=== PATIENT | male | born 1975 | race Caucasian/White ===

== ENCOUNTER 2016-09-28 17:07 | Emergency (ER) | payer SELFPAY ==
[~2016-09-28] VITALS: Ht 185.4 cm; Wt 90.7 kg
[~2016-09-28 17:07] MED LIST: AMOXICILLIN500 M2 PO; AMOXICILLIN500 MG PO; AMOXIL500 MG PO; ANAPROX DS550 MG PO; ATARAX,VISTARIL50 MG PO; CARBIDOPA/LEVOD1 TA1 PO; CLEOCIN HCL150 MG PO; CLEOCIN150 MG PO; CLINDAMYCIN HC300 MG PO; FIORICET 325 MG1 TAB PO; FLAGYL500 MG PO; FLEXERIL10 MG PO; FLEXERIL5 MG PO; HYDROCODONE BIT1 T11 PO; MEDROL DOSEPAK4 MG PO; Motrin,Rufen800 MG PO; NKHM; NORCO 10-325 T1 EACH PO; PEN-VEE K500 MG PO; PENICILLIN VK500 MG PO; PEPCID20 MG PO; PHENERGAN W/DM120 ML PO; PRILOSEC20 MG PO; Peridex 473 ML473 ML PO; TRAMADOL HCL50 MG PO; TRAMADOL HYDROC50 MG PO; TRAZODONE50 MG PO; ULTRAM50 MG PO; VICODIN 5/500 505 MG PO; VICODIN ES 7501 TAB PO; VISTARIL25 M1 PO; ZOFRAN 4 MG ED2 TAB PO; Zofran4 MG PO
[2016-09-28] MEDS ORDERED: AMOXICILLIN500 M2 PO (17:47)
[2016-09-28] MEDS ORDERED: NAPROSYN500 MG PO (17:47)
== END 2016-09-28 17:56 | disposition home or self-care (01) ==
LOC: ED 17:07
DX: K04.7 Periapical abscess without sinus (principal); F17.200 Nicotine dependence, unspecified, uncomplicated

== ENCOUNTER 2017-02-24 15:26 | Emergency (ER) | payer OTHER ==
[~2017-02-24] VITALS: Ht 182.8 cm; Wt 79.4 kg
[~2017-02-24 15:26] MED LIST changes: +NAPROSYN500 MG PO
[2017-02-24 16:41] LABS: BASO # 0.1 10*3/uL (0.0-0.1); BASO % 0.8 % (0.0-1.0); EOS # 0.1 10*3/uL (0.0-0.4); HEMATOCRIT 40.8 % (42.0-52.0); HEMOGLOBIN 14.1 g/dl (14.0-18.0); LYMPH # 2.4 10*3/uL (1.3-4.4); LYMPH % 38.5 % (27.0-41.0); MEAN CELL VOLUME 89.3 fl (80.0-94.0); MEAN CORPUSCULAR HGB 30.9 pg (27.0-31.0); MEAN CORPUSCULAR HGB CONC 34.6 g/dl (33.0-37.0); MEAN PLATELET VOLUME 9.1 fl (9.6-12.3); MONO # 0.8 10*3/uL (0.1-1.0); MONO % 13.7 % (3.0-9.0); NEUT # 2.7 10*3/uL (2.3-7.9); NEUT % 44.8 % (47.0-73.0); PLATELET COUNT AUTOMATED 208 10*3/uL (130-400); RED BLOOD COUNT 4.57 10*6/uL (4.50-5.90); RED CELL DISTRI WIDTH 13.6 % (0-14.5); WHITE BLOOD COUNT 6.1 10*3/uL (4.8-10.8)
[2017-02-24 16:59] LABS: ALBUMIN 3.9 gm/dl (3.1-4.5); ALKALINE PHOSPHATASE 87 U/L (45-117); BILIRUBIN, TOTAL 0.9 mg/dl (0.2-1.0); BUN 14 mg/dl (7-24); C-REACTIVE PROTEIN < 0.29 MG/DL (0-0.3); CARBON DIOXIDE 26 mmol/L (21-32); CHLORIDE 108 mmol/L (98-107); CPK 106 U/L (39-308); EST GLOM FILT AFRICAN AMERICAN > 60 ml/min; GLUCOSE 91 mg/dL (65-99); MAGNESIUM 2.6 mg/dL (1.5-2.1); POTASSIUM 3.6 mmol/L (3.5-5.1); SGOT/AST 32 IU/L (3-35); SGPT/ALT 66 U/L (12-78); SODIUM 138 mmol/L (136-145); TOTAL PROTEIN 7.3 gm/dL (6.4-8.2); TROPONIN I < 0.015 ng/ml (<0.045)
== END 2017-02-24 19:14 | disposition left against medical advice (07) ==
LOC: ED 15:26
PROVIDERS: Emergency Medicine
DX: R07.9 Chest pain, unspecified (principal); R55 Syncope and collapse; I25.10 Atherosclerotic heart disease of native coronary artery without angina pectoris; I25.2 Old myocardial infarction; F11.10 Opioid abuse, uncomplicated; F12.10 Cannabis abuse, uncomplicated; F17.210 Nicotine dependence, cigarettes, uncomplicated; Z90.49 Acquired absence of other specified parts of digestive tract

== ENCOUNTER 2017-05-03 12:26 | Inpatient (IN) | payer OTHER ==
[~2017-05-03] VITALS: Ht 182.9 cm; Wt 80.9 kg
[2017-05-03 12:44] VITALS: BP 111/75
[2017-05-03 13:11] LABS: URINE AMPHETAMINES < 1000 (1000ng/ml); URINE BARBITURATES < 200 (200ng/ml); URINE BENZODIAZEPINES < 200 (200ng/ml); URINE CANNABINOIDS (THC) > 50 (50ng/ml); URINE COCAINE < 300 (300ng/ml); URINE METHADONE < 300 (300ng/ml); URINE OPIATES < 300 (300ng/ml)
[2017-05-03 13:13] LABS: URINE PHENCYCLIDINE < 25 (25ng/ml)
[2017-05-03 13:15] LABS: BASO # 0.1 10*3/uL (0.0-0.1); EOS # 0.2 10*3/uL (0.0-0.4); EOS % 3.7 % (1.0-4.0); HEMATOCRIT 40.9 % (42.0-52.0); LYMPH # 1.8 10*3/uL (1.3-4.4); LYMPH % 29.8 % (27.0-41.0); MEAN CELL VOLUME 93.8 fl (80.0-94.0); MEAN CORPUSCULAR HGB 32.1 pg (27.0-31.0); MEAN CORPUSCULAR HGB CONC 34.2 g/dl (33.0-37.0); MEAN PLATELET VOLUME 8.7 fl (9.6-12.3); MONO # 0.7 10*3/uL (0.1-1.0); MONO % 10.9 % (3.0-9.0); NEUT # 3.3 10*3/uL (2.3-7.9); NEUT % 54.4 % (47.0-73.0); PLATELET COUNT AUTOMATED 203 10*3/uL (130-400); RED BLOOD COUNT 4.36 10*6/uL (4.50-5.90); RED CELL DISTRI WIDTH 13.6 % (0-14.5)
[2017-05-03 13:33] LABS: ALBUMIN 3.8 gm/dl (3.1-4.5); ALKALINE PHOSPHATASE 100 U/L (45-117); BUN 10 mg/dl (7-24); CHLORIDE 103 mmol/L (98-107); CREATININE 0.88 mg/dL (0.70-1.30); ETHYL ALCOHOL < 3.0 mg/dl (<3); SGOT/AST 24 IU/L (3-35); SGPT/ALT 35 U/L (12-78); SODIUM 136 mmol/L (136-145); TOTAL PROTEIN 7.2 gm/dL (6.4-8.2)
[2017-05-03 13:54] LABS: BILIRUBIN NEGATIVE (NEGATIVE); BLOOD NEGATIVE (NEGATIVE); CLARITY SL CLOUDY (CLEAR); COLOR YELLOW (YELLOW); GLUCOSE NEGATIVE (NEGATIVE); KETONE NEGATIVE (NEGATIVE); LEUKO ESTERASE NEGATIVE (NEGATIVE); NITRITE NEGATIVE (NEGATIVE); PH 8.5 (5.0-9.0); SPECIFIC GRAVITY 1.015 (1.005-1.030); UROBILINOGEN 0.2 E.U./dl (0.2-1.0)
[2017-05-03 14:04] LABS: BACTERIA 2+; EPITHELIAL CELLS 0-2; RBC 0-2 rbc/hpf (0-2); WBC 0-2 wbc/hpf (0-5)
[2017-05-03 14:30] VITALS: BP 127/78
[2017-05-03 14:48] VITALS: BP 127/78
--- NOTE | 2017-05-03 14:49 | NUR ---
The assessment has been completed. HOWIE LOPEZ
[2017-05-03 16:00] VITALS: BP 125/76
--- NOTE | 2017-05-03 19:54 | NUR ---
PT AWAKE IN BED WATCHING TV. C/O MUSCLE ACHES, CHRONIC BACK PAIN, RLS, ANXIETY, AND STOMACH CRAMPS. MEDICATED WITH ROBAXIN, TYLENOL, REQUIP, VISTARIL, AND BENTYL. WILL CONTINUE TO MONITOR.
[2017-05-03 20:00] VITALS: BP 117/72
--- NOTE | 2017-05-03 22:00 | NUR ---
PT RESTING QUIETLY IN BED AT THIS TIME. NO FURTHER S/S OF DISTRESS NOTED.
[2017-05-04] VITALS: BP 105/63
[2017-05-04 08:00] VITALS: BP 115/77
--- NOTE | 2017-05-04 13:02 | NUR ---
24 HR chart check completed. Patient resting quietly with no c/o discomfort. Respirations easy and regular. Vital signs stable. No overt distress. SYLVIA GRAF
[2017-05-04 16:00] VITALS: BP 104/60
--- NOTE | 2017-05-04 16:23 | NUR ---
D/C PLANNING: PATIENT WANTS TO FOLLOW-UP WITH THE [facility] FOR THE [facility]IVITR[facility]OT. 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
--- NOTE | 2017-05-04 17:19 | NUR ---
PT SIGNED OUT AMA. KARTHIKEYAN GLASS NOTIFIED.
== END 2017-05-04 17:19 | disposition left against medical advice (07) | DRG 894 ==
LOC: ED 12:26 → 4E 13:15 → EDHOLD 13:15 → 4E 13:47
PROVIDERS: Nurse Practitioner Family; ADMIT Internal Medicine
DX: F11.23 Opioid dependence with withdrawal (principal); B19.20 Unspecified viral hepatitis C without hepatic coma; F41.9 Anxiety disorder, unspecified; I25.10 Atherosclerotic heart disease of native coronary artery without angina pectoris; F17.200 Nicotine dependence, unspecified, uncomplicated; F43.10 Post-traumatic stress disorder, unspecified; K02.9 Dental caries, unspecified; F14.10 Cocaine abuse, uncomplicated; F12.90 Cannabis use, unspecified, uncomplicated; Z53.21 Procedure and treatment not carried out due to patient leaving prior to being seen by health care provider; Z80.8 Family history of malignant neoplasm of other organs or systems; Z83.3 Family history of diabetes mellitus; Z90.49 Acquired absence of other specified parts of digestive tract; Z71.6 Tobacco abuse counseling; I25.2 Old myocardial infarction

== ENCOUNTER → 2017-08-22 | Outpatient (CLI) | payer OTHER ==
[2017-08-22 17:25] LABS: ALBUMIN 4.1 gm/dl (3.1-4.5); BUN 11 mg/dl (7-24); CHLORIDE 101 mmol/L (98-107); CREATININE 1.02 mg/dL (0.70-1.30); POTASSIUM 4.3 mmol/L (3.5-5.1); SGPT/ALT 31 U/L (12-78); SODIUM 137 mmol/L (136-145); TOTAL PROTEIN 7.7 gm/dL (6.4-8.2)
[2017-08-22 17:28] LABS: SGOT/AST 24 IU/L (3-35)
[2017-08-22 17:31] LABS: ALKALINE PHOSPHATASE 96 U/L (45-117)
[2017-08-22 18:28] LABS: BILIRUBIN NEGATIVE (NEGATIVE); BLOOD NEGATIVE (NEGATIVE); CLARITY CLEAR (CLEAR); COLOR YELLOW (YELLOW); GLUCOSE NEGATIVE (NEGATIVE); KETONE NEGATIVE (NEGATIVE); LEUKO ESTERASE NEGATIVE (NEGATIVE); NITRITE NEGATIVE (NEGATIVE); PH 7.5 (5.0-9.0); UROBILINOGEN 0.2 E.U./dl (0.2-1.0)
[2017-08-22 18:42] LABS: WBC 0-2 wbc/hpf (0-5)
[2017-08-23 07:05] LABS: RHEUMATOID ARTHRITIS FACTOR 10.5 IU/mL (0.0-13.9)
[2017-08-23 08:10] LABS: AFP TUMOR MARKER 002253 2.7 ng/mL (0.0-8.3); HIV 1+2 AB + HIV1 P24 AG Non Reactive (Non Reactive)
[2017-08-23 19:03] LABS: HCV LOG10 5.953 (.); HEPATITIS C QNT 898000 IU/mL (.)
== END | disposition home or self-care (01) ==
LOC: LAB 16:24
PROVIDERS: Internal Medicine
DX: B18.2 Chronic viral hepatitis C (principal)

== ENCOUNTER 2017-09-16 02:38 | Emergency (ER) | payer OTHER ==
[~2017-09-16] VITALS: Ht 182.8 cm; Wt 81.6 kg
[2017-09-16] MEDS ORDERED: CLINDAMYCIN150 MG PO (02:46)
== END 2017-09-16 02:56 | disposition home or self-care (01) ==
LOC: ED 02:38
DX: K02.9 Dental caries, unspecified (principal); F17.200 Nicotine dependence, unspecified, uncomplicated; F12.10 Cannabis abuse, uncomplicated; I25.2 Old myocardial infarction; I25.10 Atherosclerotic heart disease of native coronary artery without angina pectoris; F14.10 Cocaine abuse, uncomplicated; Z90.49 Acquired absence of other specified parts of digestive tract

== ENCOUNTER 2018-12-29 19:36 | Emergency (ER) | payer SELFPAY ==
[~2018-12-29] VITALS: Wt 87.5 kg
--- NOTE | ~2018-12-29 | EKG ---
[place], [place] ELECTROCARDIOGRAM REPORT NAME: OUMAR ALMAZAN UNIT #: [id number] ROOM: DOCTOR: EPIPHANY DRAFT REPORT BIRTHDATE: [birth year] [facility] Test Date: 2018-12-29 Test Time: 21:16:03 Pat Name: OUMAR ALMAZAN Department: Room: Gender: Cook 3 [employer]ry: Linsey Tapia : 1975 Requested By: AYLIN WADDELL Order Number: [id number] Reading MD: Sotero Rooney MD Measurements Intervals [place] Rate: 54 P: 57 [place]: 193 QRS: 56 QRSD: 93 T: 46 QT: 425 QTc: 403 Interpretive Statements Sinus rhythm ST elev, probable normal early repol pattern Baseline wander in lead(s) V3 Electronically Signed On 01-01-2019 8:11:35 PDT by Sotero Rooney MD CM:EKGRPT:ELECTROCARDIOGRAM REPORT [id number] [id number] AYLIN WADDELL MD EPIPHANY DRAFT REPORT AYLIN WADDELL MD
--- NOTE | ~2018-12-29 | EKG ---
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
--- NOTE | ~2018-12-29 | EKG ---
[place], [place] ELECTROCARDIOGRAM REPORT NAME: OUMAR ALMAZAN UNIT #: [id number] ROOM: DOCTOR: EPIPHANY DRAFT REPORT BIRTHDATE: [birth year] [facility] Test Date: 2018-12-29 Test Time: 21:52:33 Pat Name: OUMAR ALMAZAN Department: Room: Gender: M [employer] Consultant: Linsey Tapia : 1975 Requested By: AYLIN WADDELL Order Number: [id number] Reading MD: José Tapia MD Measurements Intervals [place] Rate: 60 P: 59 [place]: 187 QRS: 56 QRSD: 91 T: 46 QT: 426 QTc: 426 Interpretive Statements Sinus rhythm ST elev, probable normal early repol pattern Electronically Signed On 12-31-2018 9:33:16 PDT by José Tapia MD CM:EKGRPT:ELECTROCARDIOGRAM REPORT [id number] AYLIN WADDELL MD EPIPHANY DRAFT REPORT AYLIN WADDELL MD
[~2018-12-29 19:36] MED LIST changes: +CLINDAMYCIN150 MG PO
[2018-12-29 20:01] LABS: BASO # 0.1 10*3/uL (0.0-0.1); EOS # 0.2 10*3/uL (0.0-0.4); EOS % 3.7 % (1.0-4.0); HEMATOCRIT 48.3 % (42.0-52.0); HEMOGLOBIN 16.2 g/dl (14.0-18.0); LYMPH # 1.7 10*3/uL (1.3-4.4); LYMPH % 29.1 % (27.0-41.0); MEAN CELL VOLUME 95.1 fl (80.0-94.0); MEAN CORPUSCULAR HGB 31.9 pg (27.0-31.0); MEAN CORPUSCULAR HGB CONC 33.5 g/dl (33.0-37.0); MEAN PLATELET VOLUME 9.2 fl (9.6-12.3); MONO # 0.7 10*3/uL (0.1-1.0); NEUT # 3.2 10*3/uL (2.3-7.9); NEUT % 53.9 % (47.0-73.0); PLATELET COUNT AUTOMATED 226 10*3/uL (130-400); RED BLOOD COUNT 5.08 10*6/uL (4.50-5.90); RED CELL DISTRI WIDTH 13.3 % (0-14.5); WHITE BLOOD COUNT 5.9 10*3/uL (4.8-10.8)
[2018-12-29 20:18] LABS: ACT PARTIAL THROMBO TIME 32.8 SECONDS (20.0-32.1); ALBUMIN 4.5 gm/dl (3.1-4.5); ALKALINE PHOSPHATASE 126 U/L (45-117); BUN 10 mg/dl (7-24); CHLORIDE 106 mmol/L (98-107); CREATININE 1.25 mg/dL (0.70-1.30); INTERNATIONAL NORM RATIO 0.9 (2.0-3.5); POTASSIUM 4.1 mmol/L (3.5-5.1); SGOT/AST 79 IU/L (3-35); SGPT/ALT 115 U/L (12-78); SODIUM 140 mmol/L (136-145); TOTAL PROTEIN 8.4 gm/dL (6.4-8.2)
[2018-12-29 20:20] LABS: TROPONIN I < 0.015 ng/ml (<0.045)
== END 2018-12-29 22:45 | disposition home or self-care (01) ==
LOC: ED 19:36
PROVIDERS: Emergency Medicine Emergency Medical Services
DX: F41.9 Anxiety disorder, unspecified (principal); R07.9 Chest pain, unspecified; R06.02 Shortness of breath; I25.10 Atherosclerotic heart disease of native coronary artery without angina pectoris; I25.2 Old myocardial infarction; F17.200 Nicotine dependence, unspecified, uncomplicated; Z90.49 Acquired absence of other specified parts of digestive tract

== ENCOUNTER 2019-02-15 19:00 | Emergency (ER) | payer SELFPAY ==
[~2019-02-15] VITALS: Ht 182.8 cm; Wt 83.9 kg
== END 2019-02-15 20:35 | disposition left against medical advice (07) ==
LOC: ED 19:00
DX: S99.929A Unspecified injury of unspecified foot, initial encounter (principal); Z53.21 Procedure and treatment not carried out due to patient leaving prior to being seen by health care provider; W22.8XXA Striking against or struck by other objects, initial encounter; Y93.89 Activity, other specified; Y92.89 Other specified places as the place of occurrence of the external cause; Y99.8 Other external cause status

== ENCOUNTER 2019-05-14 08:33 | Emergency (ER) | payer SELFPAY ==
[~2019-05-14] VITALS: Ht 182.8 cm; Wt 88.5 kg
== END 2019-05-14 09:19 | disposition home or self-care (01) ==
LOC: ED 08:33
DX: J06.9 Acute upper respiratory infection, unspecified (principal); I25.10 Atherosclerotic heart disease of native coronary artery without angina pectoris; I25.2 Old myocardial infarction; F17.210 Nicotine dependence, cigarettes, uncomplicated; Z02.79 Encounter for issue of other medical certificate; Z90.49 Acquired absence of other specified parts of digestive tract

== ENCOUNTER 2019-05-19 01:20 | Emergency (ER) | payer SELFPAY ==
[~2019-05-19] VITALS: Ht 182.8 cm; Wt 83.9 kg
[2019-05-19] MEDS ORDERED: KEFLEX500 M1 PO (02:55)
[2019-05-19] MEDS ORDERED: Motrin,Rufen800 MG PO (02:55)
== END 2019-05-19 02:59 | disposition home or self-care (01) ==
LOC: ED 01:20
DX: L03.012 Cellulitis of left finger (principal); I25.2 Old myocardial infarction; F17.200 Nicotine dependence, unspecified, uncomplicated

== ENCOUNTER 2019-05-19 22:56 | Emergency (ER) | payer SELFPAY ==
[~2019-05-19] VITALS: Ht 182.8 cm; Wt 88.5 kg
[~2019-05-19 22:56] MED LIST changes: +KEFLEX500 M1 PO
== END 2019-05-20 01:02 | disposition home or self-care (01) ==
LOC: ED 22:56
DX: L03.012 Cellulitis of left finger (principal); F17.200 Nicotine dependence, unspecified, uncomplicated; F12.90 Cannabis use, unspecified, uncomplicated

== ENCOUNTER 2019-11-29 08:19 | Emergency (ER) | payer SELFPAY ==
[~2019-11-29] VITALS: Ht 182.8 cm; Wt 86.2 kg
== END 2019-11-29 09:04 | disposition home or self-care (01) ==
LOC: ED 08:19
DX: T15.01XA Foreign body in cornea, right eye, initial encounter (principal); W22.8XXA Striking against or struck by other objects, initial encounter; Y93.89 Activity, other specified; Y92.89 Other specified places as the place of occurrence of the external cause; Y99.8 Other external cause status